=== PATIENT | male | born 1970 | race Hispanic/Latino ===

== ENCOUNTER 2020-09-27 18:07 | Emergency (ER) | payer BC, OTHER ==
[2020-09-27] MEDS ORDERED: LIDOCAINE HCL 1% 20 ML VIAL ONE (18:29)
== END 2020-09-27 19:59 | disposition home or self-care (01) ==
LOC: EDH 18:07
DX: S51.811A Laceration without foreign body of right forearm, initial encounter (principal); S01.01XA Laceration without foreign body of scalp, initial encounter; X58.XXXA Exposure to other specified factors, initial encounter; Y93.89 Activity, other specified; Y92.89 Other specified places as the place of occurrence of the external cause; Y99.8 Other external cause status
CPT/HCPCS: 12002; 73090; 99282

== ENCOUNTER → 2021-09-12 | Outpatient (CLI) | payer OTHER | END | disposition home or self-care (01) | LOC: RAH 09:05 | PROVIDERS: ATTEND Family Medicine | DX: Z13.6 Encounter for screening for cardiovascular disorders (principal) | CPT/HCPCS: 75571 ==

== ENCOUNTER 2025-02-09 08:57 | Inpatient (IN) | payer BC, OTHER ==
[~2025-02-09] VITALS: Ht 180.3 cm; Wt 87.2 kg
[2025-02-09 10:59] LABS: APPEARANCE,URINE CLOUDY (CLEAR); GLUCOSE, URINE (UA) NEGATIVE (NEGATIVE); LEUKOCYTE ESTERASE ,URINE 500 Leu/uL (NEGATIVE); NITRATE,URINE NEGATIVE (NEGATIVE); OCCULT BLOOD,URINE MODERATE (NEGATIVE)
[2025-02-09 11:00] LABS: ADD UA MICROSCOPIC YES
[2025-02-09 11:03] LABS: SQUAMOUS EPITHELIAL CELL,UR FEW /HPF (0-2)
[2025-02-09 11:08] LABS: IMMATURE GRANULOCYTE ABSOLUTE 0.10 K/uL (0-1); NUCLEATED RED BLOOD CELLS 0.0 % (0.0-0.19); PLATELET COUNT (AUTO) 201 K/uL (130-400); RED BLOOD CELL COUNT(AUTO) 4.43 MIL/uL (4.50-6.20); RED CELL DISTRIBUTION WIDTH 12.2 % (11.0-15.5); WHITE BLOOD COUNT (AUTO) 11.9 K/uL (4.8-10.8)
[2025-02-09 11:21] LABS: ASPARTATE AMINOTRANSFERASE 27.0 U/L (10-37); CREATININE 1.1 mg/dL (0.5-1.3); GLOMERULAR FILTR. RATE CALC 79.0 mL/min (>90); GLUCOSE,RANDOM 99.0 mg/dL (70-105); SODIUM SERUM 134.0 mmol/L (136-145); TOTAL PROTEIN, SERUM 7.0 g/dL (6.0-8.3); UREA NITROGEN, BLOOD 13.0 mg/dL (7-18)
--- NOTE | 2025-02-09 11:45 | ERN ---
General Chief Complaint: Urinary Retention Stated Complaint: URINARY RETENTION Time Seen by MD: 09:22 History of Present Illness Initial Comments This 54-year-old male who presented to ED with complaints of urinary retention, fever with chills, headache. He says that fever started yesterday night, it was over 100 F with chills and headache. He took Tylenol without much relief. Patient says that he has urinary retention problems for more than 6 months. He says that he feels the urge to urinate, when he tries to urinate he is unable to do it. He Says that he has scheduled an appointment with urologist this March due to unavailability of appointments right away. While his vitals temperature 101.1 F, heart rate 124, respiratory rate 22, blood pressure 158/75, saturating 99% at room air. Allergies: Coded Allergies: No Known Allergies (Unverified Allergy, Unknown, 09/27/20) Past Medical History Past Medical History: No Pertinent History Past Surgical History: None Constitutional: (+) chills, (+) fever, (+) malaise Respiratory: (-) cough, (-) orthopnea, (-) short of breath, (-) stridor, (-) wheezing, (-) other documentation Cardiovascular: (-) chest pain, (-) edema, (-) palpitations, (-) syncope, (-) dyspnea on exertion, (-) other documentation Genitourinary: (+) other documentation Neuro: (+) headache Physical Exam General Appearance: (+) moderate distress Orientation: (+) alert, (+) oriented x 3; (-) disoriented, (-) other documentation Head/Face Trauma: No Respiratory: (+) chest non-tender, (+) lungs clear Heart: (+) regular Genital Comment excessive skin on glans and unable to retract it Results Laboratory and Microbiology Lab and Micro Result Laboratory Tests Test 02/09/25 10:43 02/09/25 11:02 02/09/25 11:15 Urine Color LIGHT-YELLOW (YELLOW) Urine Appearance CLOUDY (CLEAR) H Urine pH 5.5 (5.0-8.0) Urine Specific [place] 1.014 (1.001-1.031) Urine Protein NEGATIVE mg/dL (NEGATIVE) Urine Glucose (UA) NEGATIVE mg/dL (NEGATIVE) Urine Ketones NEGATIVE mg/dL (NEGATIVE) Urine Occult Blood MODERATE (NEGATIVE) H Urine Nitrate NEGATIVE (NEGATIVE) Urine Bilirubin NEGATIVE mg/dL (NEGATIVE) Urine Urobilinogen 0.2 mg/dL (0.2-1.0) Urine Leukocyte Esterase 500 [place]/uL (NEGATIVE) H Urine RBC 11-25 /HPF (0-1) H Urine WBC 51-100 /HPF (0-1) H Urine Squamous Epithelial Cells FEW /HPF (0-2) Urine Bacteria Rare /HPF (None Seen) White Blood Count 11.9 K/uL (4.8-10.8) H Red Blood Count 4.43 MIL/uL (4.50-6.20) L Hemoglobin 14.0 g/dL (14.0-18.0) Hematocrit 39.6 % (42-54) L Mean Corpuscular Volume 89.4 fL (79-99) Mean Corpuscular Hemoglobin 31.6 pg (27.0-33.0) Mean Corpuscular Hemoglobin Concent 35.4 g/dL (32.0-36.0) Red Cell Distribution Width 12.2 % (11.0-15.5) Platelet Count 201 K/uL (130-400) Mean Platelet Volume 9.3 fL (7.5-10.5) Immature Granulocyte % (Auto) 0.8 % (0-1) Neutrophils (%) (Auto) 88.3 % (40.0-77.0) H Lymphocytes (%) (Auto) 4.9 % (21.0-51.0) L Monocytes (%) (Auto) 5.7 % (3.0-13.0) Eosinophils (%) (Auto) 0.1 % (0.0-8.0) Basophils (%) (Auto) 0.2 % (0.0-5.0) Neutrophils # (Auto) 10.5 K/uL (1.8-7.7) H Lymphocytes # (Auto) 0.6 K/uL (1.0-4.8) L Monocytes # (Auto) 0.7 K/uL (0.1-1.0) Eosinophils # (Auto) 0.01 K/uL (0.00-0.70) Basophils # (Auto) 0.02 K/uL (0.00-0.20) Absolute Immature Granulocyte (auto 0.10 K/uL (0-1) Nucleated Red Blood Cells 0.0 % (0.0-0.19) White Cell Morphology Comment See comments Sodium Level 134 mmol/L (136-145) L Potassium Level 3.6 mmol/L (3.5-5.1) Chloride Level 100 mmol/L (101-111) L Carbon Dioxide Level 26 mmol/L (21-32) Blood Urea Nitrogen 13 mg/dL (7-18) Creatinine 1.1 mg/dL (0.5-1.3) Glomerular Filtration Rate Calc 79 mL/min (>90) Random Glucose 99 mg/dL (70-105) Lactic Acid Level 2.2 mmol/L (0.8-2.5) Total Calcium 8.6 mg/dL (8.5-10.1) Total Bilirubin 2.1 mg/dL (0.2-1.0) H Aspartate Amino Transf (AST/SGOT) 27 U/L (10-37) Alanine Aminotransferase (ALT/SGPT) 29 U/L (12-78) Alkaline Phosphatase 79 U/L (50-136) Total Protein 7.0 g/dL (6.0-8.3) Albumin 4.2 g/dL (3.5-5.0) Influenza Type A Antigen Negative For Type A Influenza Type B Antigen Negative For Type B SARS-CoV-2, RNA, NAAT NEGATIVE SARS CoV-2 EKG/XRAY/US/CT/MRI Ultrasound Comment [address] [id number] [place] [id number] IMAGING REPORT Signed PATIENT: BORIS SAM JR MR#: [id number] : 1970 SEX: M AGE: 54 LOCATION: [facility] ORDER 1025 STATUS: REG REPORT#: [id number] SERVICE 1023 REASON: urinary retention ORDERING PHYSICIAN: CHOLO DSOUZA MD PROCEDURE: RENAL - US RENAL SONOGRAM EXAM: US Retroperitoneum, Renal. CLINICAL HISTORY: urinary retention TECHNIQUE: Real-time ultrasound of the retroperitoneum with image documentation. COMPARISON: None provided. FINDINGS: RIGHT KIDNEY: Normal in size ( 9.1 x 5 x 3.8 cm ) and contour. No renal mass or calculus. No hydronephrosis. LEFT KIDNEY: Normal in size ( 10.6 x 5.1 x 4.2 cm ) and contour. No renal mass or calculus. No hydronephrosis. BLADDER: Minimally distended with thickened major, thickness measuring 1.2 cm, could represent cystitis. MISCELLANEOUS: No other significant abnormality evident. IMPRESSION: 1. No acute renal or retroperitoneal findings. 2. Bladder wall thickening (1.2 cm), possibly representing cystitis. /[place] DICTATED BY: DARNELL JACKSON Jr., MD DATE: 02/09/251306 ELECTRONICALLY SIGNED BY: DARNELL JACKSON Jr., MD DATE: 02/09/251306 [place] [address] IMAGING REPORT Signed PATIENT: BORIS SAM JR MR#: [id number] : 1970 SEX: M AGE: 54 LOCATION: [facility] ORDER 113 STATUS: ADM IN REPORT#: [id number] SERVICE 1131 REASON: URINARY RETENTION ORDERING PHYSICIAN: CHOLO DSOUZA MD PROCEDURE: ABD PEL W - CT ABDOMEN/PELVIS W/CONTRAST EXAM: CT Abdomen and Pelvis with IV contrast CLINICAL HISTORY: URINARY RETENTION TECHNIQUE: Axial computed tomography images of the abdomen and pelvis with intravenous contrast. CONTRAST: with intravenous contrast. COMPARISON: None provided. FINDINGS: LUNG BASES: The lung bases appear clear. No pleural effusions are seen. LIVER: Unremarkable. GALLBLADDER AND BILE DUCTS: The gallbladder appears within normal limits. No radioopaque gallstones are seen. No biliary ductal dilatation is evident. PANCREAS: Unremarkable. SPLEEN: Unremarkable. ADRENAL GLANDS: Unremarkable. KIDNEYS, URETERS, AND BLADDER: Wall of the urinary bladder appears thickened, measuring 1.2 cm, suggestive of cystitis. The kidneys appear within normal limits. There is no hydronephrosis or hydroureter. No urinary calculi are seen. STOMACH AND BOWEL: Few diverticula in the sigmoid colon. Unremarkable appearance of the stomach. No evidence of bowel obstruction. No evidence suggesting enteritis or colitis. APPENDIX: No evidence of acute appendicitis on CT examination. PERITONEUM: No free fluid. No free air. LYMPH NODES: No lymphadenopathy is evident. REPRODUCTIVE: Mild prostatomegaly (33 cc). VASCULATURE: No evidence of abdominal aortic aneurysm. BONES: No aggressive appearing osseous lesion. No acute osseous pathology evident. IMPRESSION: 1. Bladder wall thickening (1.2 cm), suggestive of cystitis. 2. Mild prostatomegaly (33 cc). /[place] DICTATED BY: DARNELL JACKSON Jr., MD DATE: 02/09/251443 ELECTRONICALLY SIGNED BY: DARNELL JACKSON Jr., MD DATE: 02/09/251443 [facility] MDM: Differential diagnosis: Urinary retention/sepsis due to UTI/BPH This is a 54-year-old male who presented to ED with fever with chills, urinary retention, headache. On presentation to ED his temperature 101.1, pulse 124, respiratory rate 22, blood pressure 158/75. We tried to put a Crockett's catheter for urinary retention, but unable to place it due to excessive foreskin covering the glands likely phimosis. We ordered CBC, CMP, urinalysis, lactic acid , renal ultrasound, CT abdomen with contrast, blood culture. CBC shows elevated WBC count at 11.9, urinalysis shows leukocyte esterase 500, urine RBCs 11-25, urine WBC 51-100. We started IV Zosyn, IV fluids for treating sepsis due to UTI. He will be admitted for further medical management. ED Course Orders Procedure Category Date Status Time Cbc With Differential LAB 02/09/25 Complete 09:45 Comprehensive LAB 02/09/25 Complete Metabolic Panel 09:45 Urinalysis Profile LAB 02/09/25 Complete 09:45 Lactic Acid LAB 02/09/25 Complete 09:45 Covid Rna Naat LAB 02/09/25 Complete 09:45 Influenza Type A & B, LAB 02/09/25 Complete Rapid 09:45 Us Renal Sonogram US 02/09/25 Resulted 10:23 Blood Cult ZCA 02/09/25 In Process 10:23 Culture Urine ZAC 02/09/25 In Process 11:00 Zosyn 3.375gm+Ns 50ml PHA 02/09/25 Complete (Zosyn 3.375gm+Ns 12:00 Acetaminophen 500mg PHA 02/09/25 Complete Tab (Tylenol 500mg T 12:00 Ct Abdomen/Pelvis CT 02/09/25 Resulted W/Contrast 11:31 0.9%Nacl 1000ml (Ns PHA 02/09/25 Complete 1000ml) 12:00 Rapid (Group A Strep) LAB 02/09/25 Logged 11:51 Urology Consult CONPHYSVC 02/09/25 Transmitted 12:00 Current Medications Medications (Trade) Dose Ordered Sig/Vanessa Route PRN Reason Start Time Stop Time Status Last Admin Dose Admin Acetaminophen (TYLenol 500MG TAB) 500 mg Q6H PRN PO MILD PAIN (1-3) 02/09/25 12:00 02/09/25 13:53 DC 02/09/25 12:28 Piperacillin Sod/ Tazobactam Sod (Zosyn 3.375gm+NS 50ml) 3.375 gm Q8H IV 02/09/25 12:00 02/09/25 12:28 DC Sodium Chloride 2,625 ml @ 875 mls/hr ONCE ONCE IV 02/09/25 12:00 02/09/25 14:59 DC 02/09/25 12:27 Vital Signs Date Time Temp Pulse Resp B/P (MAP) Pulse Ox O2 Delivery O2 Flow Rate FiO2 02/09/25 08:58 101.1 124 22 158/75 99 Room Air DX & DISP Disposition: Inpatient Departure Impression: Primary Impression: Sepsis secondary to UTI Additional Impression: Urinary retention Critical Time: 30 minutes (Critical Care Procedure NoteAuthorized and Performed by: meTotal critical care time: Approximately 36 minutesDue to a high probability of clinically significant, life threatening deterioration, the patient required my highest level of preparedness to intervene emergently and I personally spent this critical care time directly and personally managing the patient. This critical care time included obtaining a history; examining the patient; pulse oximetry; ordering and review of studies; arranging urgent treatment with development of a management plan; evaluation of patient's response to treatment; frequent reassessment; and, discussions with other providers.This critical care time was performed to assess and manage the high probability of imminent, life-threatening deterioration that could result in multi-organ failure. It was exclusive of separately billable procedures and treating other patients and teaching time.Please see MDM section and the rest of the note for further information on patient assessment and treatment.) Condition: Stable Referrals: BOBY LANDA MD (PCP) I performed a substantive portion of the visit. I have reviewed and personally made and approve the management plan that is documented in the notes by myself with RUBY/resident. I acknowledged full responsibility for the patient's management plan. ATTESTATION BY PHYSICIAN I have seen and examined the patient. I reviewed the documentation, medical decision making, and treatment plan as noted by the resident provider above. I agree with the findings and plan of care. AILYN DAVID ADIL SHAH QUADRI MD Feb 09, 2025 11:45 AILYN DAVID DO Feb 09, 2025 17:51
[2025-02-09] MEDS ORDERED: ZOSYN 3.375GM +NS 50ML IV SCH (12:00)
[2025-02-09 12:06] LABS: SARS-CoV-2, RNA, NAAT NEGATIVE SARS CoV-2 (NEGATIVE)
--- NOTE | 2025-02-09 12:09 | HMCIMG ---
EXAM: US Retroperitoneum, Renal. CLINICAL HISTORY: urinary retention TECHNIQUE: Real-time ultrasound of the retroperitoneum with image documentation. COMPARISON: None provided. FINDINGS: RIGHT KIDNEY: Normal in size ( 9.1 x 5 x 3.8 cm ) and contour. No renal mass or calculus. No hydronephrosis. LEFT KIDNEY: Normal in size ( 10.6 x 5.1 x 4.2 cm ) and contour. No renal mass or calculus. No hydronephrosis. BLADDER: Minimally distended with thickened major, thickness measuring 1.2 cm, could represent cystitis. MISCELLANEOUS: No other significant abnormality evident. IMPRESSION: 1. No acute renal or retroperitoneal findings. 2. Bladder wall thickening (1.2 cm), possibly representing cystitis. /[place]
[2025-02-09 12:12] LABS: INFLUENZA TYPE A Negative For Type A (NEGATIVE); INFLUENZA TYPE B Negative For Type B (NEGATIVE)
[2025-02-09] MEDS: [UNRECOGNIZED DRUG - OTHER] IV ONE (12:27)
--- NOTE | 2025-02-09 12:28 | NUR ---
ZOSYN AND IV FLUIDS GIVEN AT THIS TIME
[2025-02-09] MEDS ORDERED: IOHEXOL-350 75 ML VIAL IV ONE (12:31)
--- NOTE | 2025-02-09 12:43 | NUR ---
CALLED AND SPOKE GABE SHAFFER FROM DR TAYLOR'S OFFICE, AND SHE STATED " I WILL HAVE THE DR RETURN YOUR CALL" PATIENT RESTING IN BED, CALL LIGHT IN REACH
[2025-02-09 13:28] VITALS: TEMP 104.2
--- NOTE | 2025-02-09 13:45 | HMCIMG ---
EXAM: CT Abdomen and Pelvis with IV contrast CLINICAL HISTORY: URINARY RETENTION TECHNIQUE: Axial computed tomography images of the abdomen and pelvis with intravenous contrast. CONTRAST: with intravenous contrast. COMPARISON: None provided. FINDINGS: LUNG BASES: The lung bases appear clear. No pleural effusions are seen. LIVER: Unremarkable. GALLBLADDER AND BILE DUCTS: The gallbladder appears within normal limits. No radioopaque gallstones are seen. No biliary ductal dilatation is evident. PANCREAS: Unremarkable. SPLEEN: Unremarkable. ADRENAL GLANDS: Unremarkable. KIDNEYS, URETERS, AND BLADDER: Wall of the urinary bladder appears thickened, measuring 1.2 cm, suggestive of cystitis. The kidneys appear within normal limits. There is no hydronephrosis or hydroureter. No urinary calculi are seen. STOMACH AND BOWEL: Few diverticula in the sigmoid colon. Unremarkable appearance of the stomach. No evidence of bowel obstruction. No evidence suggesting enteritis or colitis. APPENDIX: No evidence of acute appendicitis on CT examination. PERITONEUM: No free fluid. No free air. LYMPH NODES: No lymphadenopathy is evident. REPRODUCTIVE: Mild prostatomegaly (33 cc). VASCULATURE: No evidence of abdominal aortic aneurysm. BONES: No aggressive appearing osseous lesion. No acute osseous pathology evident. IMPRESSION: 1. Bladder wall thickening (1.2 cm), suggestive of cystitis. 2. Mild prostatomegaly (33 cc). /[place]
--- NOTE | 2025-02-09 14:50 | HP ---
HISTORY AND PHYSICAL NOTE DATE OF CONSULTATION: 02/09/25 REASON FOR CONSULTATION: Dysuria HISTORY OF PRESENT ILLNESS: This 54-year-old male who presented to ED with complaints of urinary retention, fever with chills, headache. He says that fever started yesterday night, it was over 100 F with chills and headache. He took Tylenol without much relief. Patient says that he has urinary retention problems for more than 6 months. He says that he feels the urge to urinate, when he tries to urinate he is unable to do it. He Says that he has scheduled an appointment with urologist this March due to unavailability of appointments right away. While his vitals temperature 101.1 F, heart rate 124, respiratory rate 22, blood pressure 158/75, saturating 99% at room air. Allergies: Coded Allergies: No Known Allergies (Unverified Allergy, Unknown, 09/27/20) Past History Past Medical History Past Medical History: No Pertinent History Past Surgical History: None Review of Systems Constitutional: (+) chills, (+) fever, (+) malaise Respiratory: (-) cough, (-) orthopnea, (-) short of breath, (-) stridor, (-) wheezing, (-) other documentation Cardiovascular: (-) chest pain, (-) edema, (-) palpitations, (-) syncope, (-) dyspnea on exertion, (-) other documentation Genitourinary: (+) other documentation Neuro: (+) headache ALLERGIES: Coded Allergies: No Known Allergies (Unverified Allergy, Unknown, 09/27/20) INPATIENT MEDS: Current Medications Medications Dose Ordered Sig/Vanessa Start Time Stop Time Status Last Admin Sodium Chloride 2,625 ml @ 875 mls/hr ONCE ONCE 02/09/25 12:00 02/09/25 14:59 02/09/25 12:27 Sodium Chloride 1,000 ml @ 50 mls/hr Q20H 02/09/25 12:30 03/11/25 12:29 Ceftriaxone Sodium 2 gm Q24H 02/09/25 21:00 02/19/25 20:59 Fluconazole 200 mg DAILY 02/10/25 09:00 03/12/25 08:59 Tamsulosin HCl 0.4 mg DAILY 02/10/25 09:00 03/12/25 08:59 VITAL SIGNS Vital Signs Date Time Temp Pulse Resp B/P (MAP) Pulse Ox O2 Delivery O2 Flow Rate FiO2 02/09/25 13:09 104.2 113 22 124/74 96 Room Air* 0 21 02/09/25 12:29 103.5 112 15 135/115 99 Room Air* 0 21 02/09/25 12:28 103.5 02/09/25 08:58 101.1 124 22 158/75 99 Room Air PHYSICAL EXAM HEENT atraumatic normocephalic head Neck is supple Lungs are clear to auscultation percussion Heart was S1-S2 heard no murmur Abdomen is soft and benign Extremities no pedal edema Neurologic moves all limbs no focal weakness Skin exam reveals phimosis Psychiatric no depression LABORATORY RESULTS Laboratory Tests 02/09/25 10:43: Urine Color LIGHT-YELLOW, Urine Appearance CLOUDY, Urine pH 5.5, Urine Specific [place] 1.014, Urine Protein NEGATIVE, Urine Glucose (UA) NEGATIVE, Urine Ketones NEGATIVE, Urine Occult Blood MODERATE, Urine Nitrate NEGATIVE, Urine Bilirubin NEGATIVE, Urine Urobilinogen 0.2, Urine Leukocyte Esterase 500, Urine RBC 11-25, Urine WBC 51-100, Urine Squamous Epithelial Cells FEW, Urine Bacteria Rare 02/09/25 11:02: White Blood Count 11.9, Red Blood Count 4.43, Hemoglobin 14.0, Hematocrit 39.6, Mean Corpuscular Volume 89.4, Mean Corpuscular Hemoglobin 31.6, Mean Corpuscular Hemoglobin Concent 35.4, Red Cell Distribution Width 12.2, Platelet Count 201, Mean Platelet Volume 9.3, Immature Granulocyte % (Auto) 0.8, Neutrophils (%) (Auto) 88.3, Lymphocytes (%) (Auto) 4.9, Monocytes (%) (Auto) 5.7, Eosinophils (%) (Auto) 0.1, Basophils (%) (Auto) 0.2, Neutrophils # (Auto) 10.5, Lymphocytes # (Auto) 0.6, Monocytes # (Auto) 0.7, Eosinophils # (Auto) 0.01, Basophils # (Auto) 0.02, Absolute Immature Granulocyte (auto 0.10, Nucleated Red Blood Cells 0.0, White Cell Morphology Comment See comments, Sodium Level 134, Potassium Level 3.6, Chloride Level 100, Carbon Dioxide Level 26, Blood Urea Nitrogen 13, Creatinine 1.1, Glomerular Filtration Rate Calc 79, Random Glucose 99, Lactic Acid Level 2.2, Total Calcium 8.6, Total Bilirubin 2.1, Aspartate Amino Transf (AST/SGOT) 27, Alanine Aminotransferase (ALT/SGPT) 29, Alkaline Phosphatase 79, Total Protein 7.0, Albumin 4.2 02/09/25 11:15: Influenza Type A Antigen Negative For Type A, Influenza Type B Antigen Negative For Type B, SARS-CoV-2, RNA, NAAT NEGATIVE SARS CoV-2 PROBLEM LIST: (1) Urinary retention ICD Codes: R33.9 - Retention of urine, unspecified; N39.0 - Urinary tract infection, site not specified (2) Sepsis secondary to UTI ICD Codes: A41.9 - Sepsis, unspecified organism; N39.0 - Urinary tract infection, site not specified PLAN IV antibiotics hydration consult Urology for urinary retention and resume Flomax Sliding scale for diabetes KYARA CIFUENTES MD Feb 09, 2025 14:50
--- NOTE | 2025-02-09 15:16 | NUR ---
DCP:HOME Pt currently lives at home with his Shilpa [phone]. pt does not have any DME, home health, or provider services. PCP is Dr. Jairon Eric and uses [facility] for any RX needs. At [place] pt will want to go home and family can assist with transportation. Addendum: 02/09/25 at 1518 by DEV CHINO SS Amended: Links added.
[2025-02-09] MEDS: 1/2 NS 1000ML 1,000 ML IV SCH (15:49)
[2025-02-09] MEDS: NOREPINEPHRIN 4MG/NS 250ML 0 ML IV ONE (16:19)
[2025-02-09] MEDS: 0.9%NACL 1000ML 1,000 ML IV ONE (16:26)
--- NOTE | 2025-02-09 17:00 | NUR ---
PER DR CIFUENTES, FOR PATIENT TO BE TAKEN TO ICU DUE TO LOW BP AND SEPSIS, I LET DR CIFUENTES KNOW PATIENT WAS ONLY RETAINING 65CC FROM BLADDER SCAN AND VOIDED ON BED PRIOR TO BLADDER SCAN WHICH HE THEN ORDERED ANOTHER BOLUS OF 1 L NS. PATIENT RESTING IN BED, CALL LIGHT IN REACH Addendum: 02/09/25 at [address] CIFUENTES TO HOLD OFF ON JOHNSON CATHETER SINCE PATIENT IS ONLY RETAINING 65CC AND VOIDING, PATIENT RESTING IN BED, CALL LIGHT IN REACH
--- NOTE | 2025-02-09 18:46 | NUR ---
CALLED AND GAVE REPORT TO MELVIN HONG, PATIENT WILL BE SENT UP DURING SHIFT CHANGE PATIENT RESTING IN BED, CALL LIGHT IN REACH
--- NOTE | 2025-02-09 19:52 | CONS ---
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 Physician: Dr Edmond Outpatient Specialists: [ ] Inpatient Consults: [ ] PROBLEM LIST: Septic shock, likely from urinary tract infection, POA Acute complicated cystitis, POA Benign prostatic hyperplasia, POA Acute urinary retention, POA PLAN: Admit to ICU Continue cardiac monitoring Continue IV fluids Monitor for urinary retention Continue ceftriaxone Follow up culture results Strict I&O Complete bedrest for now Bilateral SCDs BP monitoring per ICU protocol Keep map above 65 mmHg Levophed drip as needed Treat fever aggressively Monitor temperature curve CBC, CMP, magnesium level daily HPI: 54-year-old male with no significant past medical history who presented to ED with complaint of inability to urinate and found to have acute urinary retention, enlarged prostate, acute complicated cystitis, and septic shock. Per report patient presented to ER with above-mentioned complaint that started today, there is associated hypogastric tenderness with slight pain to lower. There is no associated fever, vomiting, or dysuria. In ER stat CBC was done and showed elevated WBC, UA consistent with urinary tract infection, his CMP notable for sodium level of 133, lactic acid of 2.2, and unremarkable kidney function. CT scan of the abdomen was done and showed cystitis and mildly enlarged prostate. Patient was subsequently started on sepsis protocol and was given 30 mL/kilogram of IV fluids and initiated on IV antibiotics, but despite aggressive fluid management patient is unable to keep map above 65, patient was subsequently started on Levophed drip. ICU consulted for critical care management for septic shock. Patient is seen and examined in his room with no relatives present at bedside. At present patient is currently hemodynamically stable, off pressors, GCS 15, able to answer questions appropriately, denies any headache, chest pain, shortness of breath, fever, or flu-like symptoms. On examination there is mild distention of the hypogastric area. Patient denies any smoking, alcohol intake, or illicit drug use. PAST MEDICAL HX: see above PAST SURGICAL HX: noncontributory SOCIAL HISTORY: No tobacco, ETOH, or illicit drug use Coded Allergies: No Known Allergies (Unverified Allergy, Unknown, 09/27/20) REVIEW OF SYSTEMS: 12 point ROS reviewed with patient. Pertinent positives mentioned above. Otherwise negative. PHYSICAL EXAM: GENERAL: alert, weak, awake oriented x 3 HEENT: EOMI, Sclera non icteric, moist mucosa NECK: Supple, no JVD, trachea midline LUNGS: Clear breath sounds bilaterally. No wheezes HEART: Regular rate and rhythm. Normal S1 and S2, without murmurs ABD: Distended hypogastric area; no CVA tenderness EXT: No clubbing cyanosis or edema NEURO: Alert and oriented to person, follows commands Vital Signs (last 8hr) Date Time Temp Pulse Resp B/P (MAP) Pulse Ox O2 Delivery O2 Flow Rate FiO2 02/09/25 18:04 99.3 97 21 108/71 98 Room Air* 0 21 02/09/25 16:07 100.4 111 22 84/49 96 Room Air* 0 21 81/46 86/47 02/09/25 13:09 104.2 113 22 124/74 96 Room Air* 0 21 02/09/25 12:29 103.5 112 15 135/115 99 Room Air* 0 02/09/25 12:28 103.5 LABS: Hematology Labs: Test 02/09/25 11:02 Range/Units White Blood Count 11.9 H 4.8-10.8 K/uL Red Blood Count 4.43 L 4.50-6.20 MIL/uL Hemoglobin 14.0 14.0-18.0 g/dL Hematocrit 39.6 L 42-54 % Mean Corpuscular Volume 89.4 79-99 fL Mean Corpuscular Hemoglobin 31.6 27.0-33.0 pg Mean Corpuscular Hemoglobin Concent 35.4 32.0-36.0 g/dL Red Cell Distribution Width 12.2 11.0-15.5 % Platelet Count 201 130-400 K/uL Mean Platelet Volume 9.3 7.5-10.5 fL Immature Granulocyte % (Auto) 0.8 0-1 % Neutrophils (%) (Auto) 88.3 H 40.0-77.0 % Lymphocytes (%) (Auto) 4.9 L 21.0-51.0 % Monocytes (%) (Auto) 5.7 3.0-13.0 % Eosinophils (%) (Auto) 0.1 0.0-8.0 % Basophils (%) (Auto) 0.2 0.0-5.0 % Neutrophils # (Auto) 10.5 H 1.8-7.7 K/uL Lymphocytes # (Auto) 0.6 L 1.0-4.8 K/uL Monocytes # (Auto) 0.7 0.1-1.0 K/uL Eosinophils # (Auto) 0.01 0.00-0.70 K/uL Basophils # (Auto) 0.02 0.00-0.20 K/uL Absolute Immature Granulocyte (auto 0.10 0-1 K/uL Nucleated Red Blood Cells 0.0 0.0-0.19 % White Cell Morphology Comment See comments Chemistry Labs: Test 02/09/25 14:58 02/09/25 11:02 Range/Units Lactic Acid Level 2.0 0.8-2.5 mmol/L Sodium Level 134 L 136-145 mmol/L Potassium Level 3.6 3.5-5.1 mmol/L Chloride Level 100 L 101-111 mmol/L Carbon Dioxide Level 26 21-32 mmol/L Blood Urea Nitrogen 13 7-18 mg/dL Creatinine 1.1 0.5-1.3 mg/dL Glomerular Filtration Rate Calc 79 >90 mL/min Random Glucose 99 70-105 mg/dL Total Calcium 8.6 8.5-10.1 mg/dL Total Bilirubin 2.1 H 0.2-1.0 mg/dL Aspartate Amino Transf (AST/SGOT) 27 10-37 U/L Alanine Aminotransferase (ALT/SGPT) 29 12-78 U/L Alkaline Phosphatase 79 50-136 U/L Total Protein 7.0 6.0-8.3 g/dL Albumin 4.2 3.5-5.0 g/dL DIAGNOSTICS / RADIOLOGY RESULTS: EXAM: CT Abdomen and Pelvis with IV contrast CLINICAL HISTORY: URINARY RETENTION TECHNIQUE: Axial computed tomography images of the abdomen and pelvis with intravenous contrast. CONTRAST: with intravenous contrast. COMPARISON: None provided. FINDINGS: LUNG BASES: The lung bases appear clear. No pleural effusions are seen. LIVER: Unremarkable. GALLBLADDER AND BILE DUCTS: The gallbladder appears within normal limits. No radioopaque gallstones are seen. No biliary ductal dilatation is evident. PANCREAS: Unremarkable. SPLEEN: Unremarkable. ADRENAL GLANDS: Unremarkable. KIDNEYS, URETERS, AND BLADDER: Wall of the urinary bladder appears thickened, measuring 1.2 cm, suggestive of cystitis. The kidneys appear within normal limits. There is no hydronephrosis or hydroureter. No urinary calculi are seen. STOMACH AND BOWEL: Few diverticula in the sigmoid colon. Unremarkable appearance of the stomach. No evidence of bowel obstruction. No evidence suggesting enteritis or colitis. APPENDIX: No evidence of acute appendicitis on CT examination. PERITONEUM: No free fluid. No free air. LYMPH NODES: No lymphadenopathy is evident. REPRODUCTIVE: Mild prostatomegaly (33 cc). VASCULATURE: No evidence of abdominal aortic aneurysm. BONES: No aggressive appearing osseous lesion. No acute osseous pathology evident. IMPRESSION: 1. Bladder wall thickening (1.2 cm), suggestive of cystitis. 2. Mild prostatomegaly (33 cc). PLAN NEURO: Minimize central acting medications as possible. Fall Precautions. Well lighted room through the day and minimize interruptions through the night to prevent acute delirium. PULMONARY: Supplemental 02 as needed Titrate Fio2 to keep Spo2 > or = 90% DuoNebs and CPT as needed IS hourly while awake for pulmonary hygiene CARDIOVASCULAR: Follow hemodynamics. Titrate vasopressor to keep MAP >65 or systolic blood pressure >95mmHg DIPS: LINES: PIV GI & NUTRITION: Continue nutritional support Aspirations precautions Prokinetic agents and laxatives as needed KIDNEYS & ELECTROLYTES: Strict monitoring of intake and output Daily weights Avoid nephrotoxic agents Monitor electrolytes and replace as needed Goal urine output of 30mL/hr or 0.5mL/kg/hr ENDOCRINE: Maintain blood glucose between 100-180 at all times. Insulin sliding scale for blood glucose management INFECTIOUS DISEASE: Trend temperature. Todd-culture if febrile. Micro: [ ] Antibiotics: [ ] HEMATOLOGY & COAGULATION: Monitor H&H. Keep Hgb > 7 Transfuse 1 unit of PRBC for Hgb < 7 Transfuse 1 pack of platelets of platelets < 20, 000 Watch for any signs and symptoms of bleeding SKIN: Pressure ulcer prevention per facility protocol Rehab: PT/OT Prophylaxis: GI: [ ] DVT: SCDs Code Status: Full Resuscitation Disposition: ICU Other: Total patient care time exceeds 35 minutes excluding all procedures. Supervising physician: KATIANA Flores APRN Feb 09, 2025 19:52
[2025-02-09 20:00] VITALS: BP 97/49; PULSE 97; RESP 24; TEMP 99.5; O2SAT 96
[2025-02-09 21:00] VITALS: BP 99/64; PULSE 101; RESP 17
[2025-02-09 22:00] VITALS: BP 99/67; PULSE 100; RESP 23
[2025-02-09 23:00] VITALS: BP 108/74; PULSE 98; RESP 22
[2025-02-10] VITALS (13 sets, daily range): BP systolic 92–138; BP diastolic 39–75; PULSE 85–96; RESP 15–24; TEMP 98.2–99.5; O2SAT 96–98
--- NOTE | 2025-02-10 08:15 | NUR ---
Dr. Eric rounded on patient. Updated MD on patient status. MD told patient he would stay one more day to continue to monitor his vital. Possible discharge tomorrow 02/11.
--- NOTE | 2025-02-10 08:22 | NUR ---
Dr. Sosa rounded on patient. Updated MD on patient status. MD at bedside when bladder scan done. No retention noted. MD stated patient is able to discharge from a urology standpoint. MD ordered topical cream for site. Patient may follow up with MD in office in 1 week after discharge.
--- NOTE | 2025-02-10 08:54 | PN ---
[facility] INPATIENT SERVICES PROGRESS NOTE Date Patient Seen: Feb 10, 2025 Time of Visit: 08:54 Supervising Physician: Magan Kaiser MD Consulting Physician: Dr Edmond Outpatient Specialists: [ ] Inpatient Consults: [ ] PROBLEM LIST: Septic shock, likely from urinary tract infection, POA, resolved Gram-negative rods bacteremia POA Acute Gram-negative rods complicated cystitis, POA Benign prostatic hyperplasia, POA Acute urinary retention, POA Plan: Downgraded by primary team to medical floor Follow urology recommendations Recommend ID consult for Gram-negative trinh bacteremia Monitor for urinary retention Change Rocephin to cefepime Follow blood cultures Follow urine cultures INTERVAL HISTORY: Chart reviewed including all laboratory and imaging [place]. [place] [address], hemoglobin 12.4 hematocrit 25.5 platelet count is normal 176 K. Chemistries shows sodium of 133 chloride of 99 random glucose 141 mg/dL procalcitonin 24.17 total bili of 2.2. Blood cultures growing Gram-negative rods urine cultures growing Gram-negative rods. Patient assessed at bedside. Denies chest pain, palpitation, or shortness for breath. Bladder scan this morning with 28 mL residual urine. Per Urology continue Flomax. Hemodynamically stable. No major overnight events reported. Patient has been downgraded to medical floor. He is in no respiratory distress on room air saturating 95%. On behalf of [facility] thank you for given us the opportunity to participate in the care of this patient. From pulmonary standpoint patient is stable at this time. We will sign off. Please reach to us should the need arise. On behalf of [facility] we are thankful for your team to let us participate in the care of this patient. We will be available if assistance in pulmonary critical care needed. REVIEW OF SYSTEMS: 12 point ROS reviewed with patient. Pertinent positives mentioned above. Ot herwise negative. PHYSICAL EXAM: GENERAL: alert, weak, awake oriented x 3 HEENT: EOMI, Sclera non icteric, moist mucosa NECK: Supple, no JVD, trachea midline LUNGS: Clear breath sounds bilaterally. No wheezes HEART: Regular rate and rhythm. Normal S1 and S2, without murmurs ABD: Distended hypogastric area; no CVA tenderness EXT: No clubbing cyanosis or edema NEURO: Alert and oriented to person, follows commands Vital Signs (last 8hr) Date Time Temp Pulse Resp B/P (MAP) Pulse Ox O2 Delivery O2 Flow Rate FiO2 02/10/25 07:00 94 24 98/39 93 Room Air 02/10/25 06:00 92 22 100/62 91 Room Air 02/10/25 05:00 91 107/68 94 Room Air 02/10/25 04:00 97 Room Air* 0 02/10/25 04:00 99.3 90 21 93/54 91 Room Air 02/10/25 03:00 92 20 97/62 93 Room Air 02/10/25 02:00 93 92/64 92 Room Air 02/10/25 01:00 94 22 95/60 93 Room Air LABS: Hematology Labs: Test 02/09/25 11:02 Range/Units White Blood Count 11.9 H 4.8-10.8 K/uL Red Blood Count 4.43 L 4.50-6.20 MIL/uL Hemoglobin 14.0 14.0-18.0 g/dL Hematocrit 39.6 L 42-54 % Mean Corpuscular Volume 89.4 79-99 fL Mean Corpuscular Hemoglobin 31.6 27.0-33.0 pg Mean Corpuscular Hemoglobin Concent 35.4 32.0-36.0 g/dL Red Cell Distribution Width 12.2 11.0-15.5 % Platelet Count 201 130-400 K/uL Mean Platelet Volume 9.3 7.5-10.5 fL Immature Granulocyte % (Auto) 0.8 0-1 % Neutrophils (%) (Auto) 88.3 H 40.0-77.0 % Lymphocytes (%) (Auto) 4.9 L 21.0-51.0 % Monocytes (%) (Auto) 5.7 3.0-13.0 % Eosinophils (%) (Auto) 0.1 0.0-8.0 % Basophils (%) (Auto) 0.2 0.0-5.0 % Neutrophils # (Auto) 10.5 H 1.8-7.7 K/uL Lymphocytes # (Auto) 0.6 L 1.0-4.8 K/uL Monocytes # (Auto) 0.7 0.1-1.0 K/uL Eosinophils # (Auto) 0.01 0.00-0.70 K/uL Basophils # (Auto) 0.02 0.00-0.20 K/uL Absolute Immature Granulocyte (auto 0.10 0-1 K/uL Nucleated Red Blood Cells 0.0 0.0-0.19 % White Cell Morphology Comment See comments Chemistry Labs: Test 02/09/25 14:58 02/09/25 11:02 Range/Units Lactic Acid Level 2.0 0.8-2.5 mmol/L Sodium Level 134 L 136-145 mmol/L Potassium Level 3.6 3.5-5.1 mmol/L Chloride Level 100 L 101-111 mmol/L Carbon Dioxide Level 26 21-32 mmol/L Blood Urea Nitrogen 13 7-18 mg/dL Creatinine 1.1 0.5-1.3 mg/dL Glomerular Filtration Rate Calc 79 >90 mL/min Random Glucose 99 70-105 mg/dL Total Calcium 8.6 8.5-10.1 mg/dL Total Bilirubin 2.1 H 0.2-1.0 mg/dL Aspartate Amino Transf (AST/SGOT) 27 10-37 U/L Alanine Aminotransferase (ALT/SGPT) 29 12-78 U/L Alkaline Phosphatase 79 50-136 U/L Total Protein 7.0 6.0-8.3 g/dL Albumin 4.2 3.5-5.0 g/dL DIAGNOSTICS / RADIOLOGY RESULTS: [ ][place] [address] [address] IMAGING REPORT Signed PATIENT: BORIS SAM JR MR#: [id number] : 1970 SEX: M AGE: 54 LOCATION: [facility] ORDER 113 STATUS: ADM IN REPORT#: [id number] SERVICE 1131 REASON: URINARY RETENTION ORDERING PHYSICIAN: CHOLO DSOUZA MD PROCEDURE: ABD PEL W - CT ABDOMEN/PELVIS W/CONTRAST EXAM: CT Abdomen and Pelvis with IV contrast CLINICAL HISTORY: URINARY RETENTION TECHNIQUE: Axial computed tomography images of the abdomen and pelvis with intravenous contrast. CONTRAST: with intravenous contrast. COMPARISON: None provided. FINDINGS: LUNG BASES: The lung bases appear clear. No pleural effusions are seen. LIVER: Unremarkable. GALLBLADDER AND BILE DUCTS: The gallbladder appears within normal limits. No radioopaque gallstones are seen. No biliary ductal dilatation is evident. PANCREAS: Unremarkable. SPLEEN: Unremarkable. ADRENAL GLANDS: Unremarkable. KIDNEYS, URETERS, AND BLADDER: Wall of the urinary bladder appears thickened, measuring 1.2 cm, suggestive of cystitis. The kidneys appear within normal limits. There is no hydronephrosis or hydroureter. No urinary calculi are seen. STOMACH AND BOWEL: Few diverticula in the sigmoid colon. Unremarkable appearance of the stomach. No evidence of bowel obstruction. No evidence suggesting enteritis or colitis. APPENDIX: No evidence of acute appendicitis on CT examination. PERITONEUM: No free fluid. No free air. LYMPH NODES: No lymphadenopathy is evident. REPRODUCTIVE: Mild prostatomegaly (33 cc). VASCULATURE: No evidence of abdominal aortic aneurysm. BONES: No aggressive appearing osseous lesion. No acute osseous pathology evident. IMPRESSION: 1. Bladder wall thickening (1.2 cm), suggestive of cystitis. 2. Mild prostatomegaly (33 cc). /[place] DICTATED BY: DARNELL JACKSON Jr., MD DATE: 02/09/251443 ELECTRONICALLY SIGNED BY: DARNELL JACKSON Jr., MD DATE: 02/09/251443 PLAN NEURO: Minimize central acting medications as possible. Maintain fall precautions, adequate lighting during the day PULMONARY: Supplemental 02 as needed. Maintain aspiration precautions at all times CARDIOVASCULAR: Follow hemodynamics. Vital signs per facility protocol GI & NUTRITION: Continue with nutritional support. Continue stool softeners and laxatives as needed. KIDNEYS & ELECTROLYTES: Strict monitoring of intake, output and overall fluid balance. Avoid nephrotoxic medications to the extent possible. Medications to be dosed according to renal function. Monitor electrolytes and replace as needed ENDOCRINE: Maintain blood glucose between 100-180 at all times. Hypoglycemia protocol in place INFECTIOUS DISEASE: Trend temperature, WBC and procalcitonin level Follow cultures, deescalate antibiotics as soon as possible. Panculture if new onset fever ONCOLOGY/HEMATOLOGY/COAGULATION: Monitor for s/s of bleeding Monitor hemoglobin, coagulation studies as needed SKIN: Pressure ulcer prevention per facility protocol Specialty mattress ORTHO/REHAB: Continue PT/OT Prophylaxis: Continue GI and DVT prophylaxis Code Status: Full Resuscitation Disposition: TBD Other: ATTESTATION BY PHYSICIAN The patient has been seen and evaluated, the case has been discussed with the CLOTH FINISHING RANGE BACK TENDER, I agree with the clinical findings and plan of care. Magan Kaiser MD, [facility] Feb 10, 2025 08:54
[2025-02-10] MEDS: CLOTRIMAZOLE/BETAMETHASONE DIP 45 GM CREAM.GM. TP SCH (09:08)
[2025-02-10] MEDS: BACITRACIN 28.4 GM OINT TP SCH (09:08)
[2025-02-10 09:41] LABS: NUCLEATED RED BLOOD CELLS 0.0 % (0.0-0.19); PLATELET COUNT (AUTO) 176.0 K/uL (130-400); RED BLOOD CELL COUNT(AUTO) 3.86 MIL/uL (4.50-6.20); RED CELL DISTRIBUTION WIDTH 12.7 % (11.0-15.5); WHITE BLOOD COUNT (AUTO) 17.0 K/uL (4.8-10.8)
[2025-02-10 09:51] LABS: ASPARTATE AMINOTRANSFERASE 35.0 U/L (10-37); CREATININE 1.2 mg/dL (0.5-1.3); GLOMERULAR FILTR. RATE CALC 71.0 mL/min (>90); GLUCOSE,RANDOM 141.0 mg/dL (70-105); SODIUM SERUM 133.0 mmol/L (136-145); TOTAL PROTEIN, SERUM 6.3 g/dL (6.0-8.3); UREA NITROGEN, BLOOD 17.0 mg/dL (7-18)
--- NOTE | 2025-02-10 10:14 | CONS ---
REASON FOR CONSULTATION: Evaluation of phimosis and dysuria. HISTORY OF PRESENT ILLNESS: Dear Dr. Eric, I had the pleasure to see the patient for consultation today for evaluation of phimosis and dysuria. He is an approximately 54-year-old male with an 8-month history of voiding difficulties from phimosis. Apparently, he was deemed to be in retention in the emergency room with a temperature of 101. Attempts to place a Crockett catheter apparently failed. Bladder scan and postvoid residual shows a postvoid residual of [address] scan shows a collapsed bladder. There is no urinary retention. The patient is encountered lying in bed comfortably with the at the bedside. He is able to void and empty his bladder. ALLERGIES: None. MEDICATIONS: Ceftriaxone, fluconazole, tamsulosin. PAST MEDICAL HISTORY: No diabetes, hypertension, disease. PAST SURGICAL HISTORY: Negative. SOCIAL HISTORY: The patient is . He does not smoke or drink. He works as an [employer] supervisor. FAMILY HISTORY: No kidney stones or prostate cancer. REVIEW OF SYSTEMS: He has no shortness of breath. No chest pain. Appetite is good. No nausea or vomiting or diarrhea. No headaches or dizziness. No nosebleed. No joint pain, joint swelling, limitation of movement, night sweats. PHYSICAL EXAMINATION: GENERAL: White male, in no distress whatsoever. VITAL SIGNS: His temperature is 98. Blood pressure is 130/80 with a pulse of 82. NECK: No adenopathy or supraclavicular masses palpable. LUNGS: Lung brito are clear to auscultation and percussion. HEART: Heart sounds are best heard in the fifth intercostal space, midclavicular line. ABDOMEN: Full, soft, nontender. BACK: No CVA tenderness. GENITALIA AND RECTAL: The patient is not circumcised. The patient has phimosis, unable to retract foreskin; however, he does have an opening allowing him to urinate. The testicles were examined bilaterally and are nontender. Rectal examination revealed patent anus. LABORATORY DATA: White count 11, hematocrit 39, platelet count 201, sodium 135, potassium 3.6, and BUN and creatinine 13 and 1.1. Urinalysis is pending. IMAGING STUDIES: CT scan of the abdomen and pelvis was reviewed. Collapsed bladder. No retroperitoneal adenopathy. No cortical masses in the kidneys. ASSESSMENT: * Phimosis. * Possible urinary tract infection. RECOMMENDATIONS: * The patient to have local wound care to his phimosis with clobetasol and Neosporin ointment with a Q-tip twice a day for rigorous penile hygiene. * The patient will continue on ____ antibiotics. * Follow up with me as an outpatient in a week or so to schedule elective circumcision as an outpatient. The patient's concerns and questions were addressed at the bedside. We explained the answer to her satisfaction today. Dr. Eric was present at the bedside with me as well and thank you for giving me the opportunity to see your patient. TID: [id number] RECEIPT: [id number]
--- NOTE | 2025-02-10 10:40 | NUR ---
Paged Dr. Eric to inform him of elevated WBCs and Procalcitonin. Spoke with Leslie at the office who informed me she would pass along the information to Dr. Eric. Will ask if he would like an infectious disease consult for the patient when he returns the page.
[2025-02-10] MEDS ORDERED: NAPR-1194 PO (10:59)
[2025-02-10] MEDS ORDERED: GABA-529 PO (10:59)
[2025-02-11 04:00] VITALS: BP 130/77; PULSE 88; RESP 20; TEMP 98.5
[2025-02-11 07:32] LABS: CREATININE 1.0 mg/dL (0.5-1.3); GLOMERULAR FILTR. RATE CALC 88.0 mL/min (>90); GLUCOSE,RANDOM 106.0 mg/dL (70-105); SODIUM SERUM 136.0 mmol/L (136-145); UREA NITROGEN, BLOOD 13.0 mg/dL (7-18)
[2025-02-11 08:00] VITALS: BP 135/74; PULSE 102; RESP 16; TEMP 98.5; O2SAT 95
[2025-02-11 08:27] LABS: IMMATURE GRANULOCYTE ABSOLUTE 2.40 K/uL (0-1); NUCLEATED RED BLOOD CELLS 0.0 % (0.0-0.19); PLATELET COUNT (AUTO) 150 K/uL (130-400); RED BLOOD CELL COUNT(AUTO) 4.74 MIL/uL (4.50-6.20); RED CELL DISTRIBUTION WIDTH 12.5 % (11.0-15.5); WHITE BLOOD COUNT (AUTO) 13.9 K/uL (4.8-10.8)
--- NOTE | 2025-02-11 08:54 | PN ---
SUBJECTIVE: The patient was admitted for assessment and treatment of urinary tract infection, septic shock, urinary retention symptoms. Patient was started on IV fluids, inotropic, IV antibiotics. Cultures were sent. OBJECTIVE: GENERAL: He is currently comfortable in bed, examining at bedtime. Awake, alert, oriented in person, time and place with inotropic in place. VITAL SIGNS: Blood pressure is 101/56, pulse 88, respiratory rate 21. HEENT: Normocephalic, atraumatic. LUNGS: Clear to auscultation. HEART: S1, S2 are distant. ABDOMEN: Soft, nontender. EXTREMITIES: No clubbing or cyanosis. LABORATORY DATA: WBC count pending. Urine culture and blood cultures are pending. ASSESSMENT AND PLAN: 1. Septic shock. Continue current antibiotics as well as inotropic. 2. Urinary tract infection, pending results of cultures. 3. Urinary retention: No evidence of bladder distention, only bladder thickening consisting of cystitis as well as some mild prostate enlargement. Continue to monitor. Urology consultation has been made. 4. Follow up in a.m. with results of tests. DOS: 02/10/2025 TID: [id number] RECEIPT: [id number] [facility]
[2025-02-11 12:00] VITALS: BP 135/87; PULSE 91; RESP 16; TEMP 98.3
--- NOTE | 2025-02-11 13:53 | NUR ---
PATIENT DISCHARGED. 2 IVS REMOVED INTACT. EDUCATED THE PATIENT ON FOLLOW UP APPOINTMENT WITH DR LANDA ON 02/14 AND WHERE TO TAX ASSOCIATE ATTORNEY PRESCRIBED ANTIBIOTIC. PATIENT VERBALIZED UNDERSTANDING. ALL BELONGINGS GATHERED BY PATIENT AND TAKEN DOWN BY SPOUSE. ALL QUESTIONS AND CONCERNS ANSWERED. PATIENT TRANSFERRED DOWN TO PERSONAL VEHICLE VIA WHEELCHAIR ALERT AND ORIENTED X 4.
== END 2025-02-11 14:10 | disposition home or self-care (01) | DRG 871 ==
LOC: EDH 08:57 → EDHIP 12:11 → 2BH 19:43 → 3BH 02-10 23:15
PROVIDERS: ADMIT Internal Medicine; ATTEND Internal Medicine
DX: A41.50 Gram-negative sepsis, unspecified (principal); R65.21 Severe sepsis with septic shock; N30.00 Acute cystitis without hematuria; E11.9 Type 2 diabetes mellitus without complications; N40.0 Benign prostatic hyperplasia without lower urinary tract symptoms; N47.1 Phimosis
CPT/HCPCS: 36415; 74177; 76770; 80048; 80053; 81001; 83605; 84145; 85025; 85027; 87040; 87086; 87186; 87635; 87804; 87880; 96361; 96374; 99291; G0378; J0692; J0696; J1885; J2405; J2543; J3490; J7030; Q9967